=== PATIENT | male | born 1960 | race American Indian/Alaskan Native ===

== ENCOUNTER 2017-01-11 14:11 | Emergency (ER) | payer MEDICAID ==
[2017-01-11] MEDS ORDERED: HYDROmorphone 1 MG/ML Syringe IM ONE (14:50)
--- NOTE | 2017-01-11 14:55 | EDM.PDOC ---
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 he is set up for fusion of C1-C2 usually uses OxyContin to control his pain he states over the last 3 weeks his pain has gotten more severe over the last 24 hours pain is so significant that he has difficulty turning his neck denies any numbness tingling in his fingertips no difficulty with ambulation he is also use muscle relaxants which usually do provide some relief - Related Data Allergies/ADRs: Allergies Allergy/AdvReac Type Severity Reaction Status Date / Time No Known Allergies Allergy Verified 09/04/16 13:54 Home Meds: Home Meds Aspirin [Ecotrin] 81 mg PO DAILY 08/21/16 [History] Cyclobenzaprine [Flexeril] 20 mg PO BEDTIME 08/21/16 [History] Magnesium 200 mg PO DAILY 08/21/16 [History] Multivitamin [Multivitamins] 1 tab PO DAILY 08/21/16 [History] oxyCODONE ER [OxyCONTIN] 10 mg PO BEDTIME 08/21/16 [History] Gabapentin [Neurontin] 1 tab PO TID 01/11/17 [History] Past Medical History Musculoskeletal History: Reports: Neck pain, chronic - Past Surgical History Musculoskeletal Surgical History: Reports: Shoulder surgery Social & Family History - Tobacco Use Smoking Status *Q: Current Every Day Smoker Years of Tobacco use: 40 Packs/Tins Daily: 1 ED ROS GENERAL - Review of Systems Review Of Systems: See Below Constitutional: Reports: no symptoms Respiratory: Reports: No Symptoms Cardiovascular: Reports: No symptoms GI/Abdominal: Reports: No symptoms Musculoskeletal: Reports: neck pain ED EXAM, UPPER BACK/NECK PAIN - Physical Exam Exam: See Below Exam Limited By: No limitations General Appearance: alert, WD/WN, mild distress Eye Exam: bilateral eye: normal inspection Head Exam: atraumatic, normocephalic Neck Exam: normal alignment, normal inspection, limited range of motion, muscle spasm, paraspinous muscle tender, stiff neck, tenderness, tender lateral. No: spinous processes tender, tender midline Course - Vital Signs Last Recorded V/S: Last Vital Signs Temp 97.1 F 01/11/17 16:38 Pulse 78 01/11/17 16:38 Resp 16 01/11/17 16:38 BP 129/87 01/11/17 16:38 Pulse Ox 97 01/11/17 16:38 - Orders/Labs/Meds Meds: Medications Discontinued Medications Generic Name Dose Route Start Last Admin Trade Name Darren PRN Reason Stop Dose Admin Baclofen 10 mg 01/11/17 16:21 01/11/17 16:49 Lioresal PO 01/11/17 16:22 10 mg ONETIME ONE Administration Hydromorphone HCl 1 mg 01/11/17 14:50 01/11/17 15:09 Dilaudid IM 01/11/17 14:51 1 mg ONETIME ONE Administration Lorazepam 1 mg 01/11/17 15:34 01/11/17 15:51 Ativan IM 01/11/17 15:35 1 mg ONETIME ONE Administration Departure - Departure Time of Disposition: 17:04 Disposition: Home, Self-Care 01 Condition: good Clinical Impression: Neck pain Forms: ED Department Discharge Additional Instructions: Use Ativan as needed to help control muscle spasms, keep your followup appointment at the [facility] on Friday - Assessment/Plan Plan: Assessment Acuity = acute on chronic Site and laterality = neck pain Etiology = probably secondary to muscle spasm Manifestations = none Location of injury = home Plan He had minimal improvement from the Dilaudid provided, was given 1 mg Ativan IM as well as 10 mg of baclofen which did provide some relief to him plan is to discharge home with Ativan he has an appointment at the [facility] for his neck pain on Friday total #10 1 mg tablets, Patient was in agreement with the plan all questions were answered, they were instructed to return to the emergency department or call for worsening symptoms. This note was dictated using [employer] voice recognition software please call with any questions.
[2017-01-11] MEDS ORDERED: LORazepam 2 MG/ML MDV IM ONE (15:34)
[2017-01-11] MEDS ORDERED: Baclofen 10 MG Tab PO ONE (16:21)
[2017-01-11 16:38] VITALS: BP 129/87
== END 2017-01-11 17:15 | disposition home or self-care (01) ==
LOC: JP.ED 14:11
DX: M54.2 Cervicalgia (principal); F17.210 Nicotine dependence, cigarettes, uncomplicated; Z98.890 Other specified postprocedural states; Z79.82 Long term (current) use of aspirin; Z79.899 Other long term (current) drug therapy
CPT/HCPCS: 96372; 99283; A9270; J1170; J2060

== ENCOUNTER 2018-05-31 11:02 | Inpatient (IN) | payer MEDICAID ==
[2018-05-31] MEDS ORDERED: Ketorolac 60 MG/2 ML SDV IM ONE (11:33)
--- NOTE | 2018-05-31 11:36 | EDM.PDOC ---
ED HPI GENERAL MEDICAL PROBLEM - General Chief Complaint: Upper Extremity Injury/Pain Stated Complaint: POSSIBLE BROKEN RIBS Time Seen by Provider: 05/31/18 11:31 Source of Information: Reports: Patient, Family (son) History Limitations: Reports: No Limitations - History of Present Illness INITIAL COMMENTS - FREE TEXT/NARRATIVE: Pt was playing in the yard with his grandkids about 10:45 this morning when he tripped over a electrical cord and fell onto his left side. Now with mid thoracic lateral rib pain. Ice is applied. Rates pain a 10. Pt moaning with position changes. Denies shortness of breath. 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: Cold Therapy Left Chest Pain Score (Numeric/FACES): 10 - Related Data Allergies Allergy/AdvReac Type Severity Reaction Status Date / Time No Known Allergies Allergy Verified 05/31/18 11:19 Home Meds: Home Meds Aspirin [Ecotrin] 81 mg PO DAILY 08/21/16 [History] Magnesium 200 mg PO DAILY 08/21/16 [History] Past Medical History Musculoskeletal History: Reports: Neck Pain, Chronic - Past Surgical History Musculoskeletal Surgical History: Reports: Shoulder Surgery, Other (See Below) Other Musculoskeletal Surgeries/Procedures:: C2 clean out Social & Family History - Tobacco Use Smoking Status *Q: Current Every Day Smoker Years of Tobacco use: 35 Packs/Tins Daily: 1 Used Tobacco, but Quit: No Second Hand Smoke Exposure: Yes - Caffeine Use Caffeine Use: Reports: Coffee - Recreational Drug Use Recreational Drug Use: No Review of Systems - Review of Systems Review Of Systems: See Below Constitutional: Reports: No Symptoms Ears: Reports: No Symptoms Nose: Reports: No Symptoms Mouth/Throat: Reports: No Symptoms Respiratory: Reports: No Symptoms Cardiovascular: Reports: No Symptoms Musculoskeletal: Reports: Other (left lateral rib pain) Skin: Reports: Other (small abrasion to left ring finger) Neurological: Reports: No Symptoms Psychiatric: Reports: Anxiety (moaning with pain) ED EXAM, GENERAL - Physical Exam Exam: See Below Exam Limited By: No Limitations General Appearance: Alert, WD/WN, Moderate Distress Ears: Normal External Exam, Normal Canal, Hearing Grossly Normal, Normal TMs Nose: Normal Inspection, Normal Mucosa, No Blood Throat/Mouth: Normal Inspection, Normal Lips, Normal Teeth, Normal Gums, Normal Oropharynx, Normal Voice, No Airway Compromise Head: Atraumatic, Normocephalic Neck: Normal Inspection, Supple, Non-Tender, Full Range of Motion Respiratory/Chest: No Respiratory Distress, Lungs Clear, Normal Breath Sounds, No Accessory Muscle Use, Chest Non-Tender Cardiovascular: Normal Peripheral Pulses Back Exam: Normal Inspection, Full Range of Motion, Other (tender over the left lateral thoracic region. No bruising or abrasion noted.) Course - Vital Signs Last Recorded V/S: Last Vital Signs Temp 96.2 F 05/31/18 12:41 Pulse 88 05/31/18 12:41 Resp 16 05/31/18 12:41 BP 122/77 05/31/18 12:41 Pulse Ox 95 05/31/18 12:41 - Orders/Labs/Meds Orders: Active Orders 24 hr Category Date Time Status Chest 1V Frontal [CR] Stat Exams 05/31/18 13:49 Taken Chest wo Cont [CT] Stat Exams 05/31/18 12:12 Taken Ribs 2V w Chest Lt [CR] Stat Exams 05/31/18 11:32 Taken Lidocaine 1% w/EPINEPHrine [Xylocaine 1% with Med 05/31/18 13:15 Active EPINEPHrine 1:100,000] 5 ml INFILT STAT Sodium Chloride 0.9% [Saline Flush] Med 05/31/18 12:22 Active 10 ml FLUSH ASDIRECTED PRN Saline Lock Insert [OM.PC] Routine Oth 05/31/18 12:22 Ordered Medication Orders Lidocaine/Epinephrine (Xylocaine 1% With Epinephrine 1:100,000) 5 ml INFILT STAT NORMA Last Admin: 05/31/18 13:59 Dose: 5 ml Sodium Chloride (Saline Flush) 10 ml FLUSH ASDIRECTED PRN PRN Reason: Keep Vein Open Last Admin: 05/31/18 13:27 Dose: 10 ml Admin: 05/31/18 12:32 Dose: 10 ml Labs: Laboratory Tests 05/31/18 05/31/18 05/31/18 Range/Units 12:34 12:34 12:34 WBC 13.0 H (4.5-11.0) K/uL RBC 5.29 (4.30-5.90) M/uL Hgb 16.4 H (12.0-15.0) g/dL Hct 48.6 (40.0-54.0) % MCV 92 (80-98) fL MCH 31 (27-31) pg MCHC 34 (32-36) % Plt Count 244 (150-400) K/uL Neut % (Auto) 77 H (36-66) % Lymph % (Auto) 15 L (24-44) % Crockett % (Auto) 6 (2-6) % Eos % (Auto) 2 (2-4) % Baso % (Auto) 1 (0-1) % PT 11.4 (9.5-12.0) sec INR 1.04 (0.80-1.20) Sodium 138 L (140-148) mmol/L Potassium 4.5 (3.6-5.2) mmol/L Chloride 103 (100-108) mmol/L Carbon Dioxide 25 (21-32) mmol/L Anion Gap 14.5 H (5.0-14.0) mmol/L BUN 10 (7-18) mg/dL Creatinine 0.7 L (0.8-1.3) mg/dL Est Cr Clr Drug Dosing 117.83 mL/min Estimated GFR (MDRD) > 60 (>60) Glucose 118 H (74-106) mg/dL Calcium 9.4 (8.5-10.1) mg/dL Meds: Medications Generic Name Dose Route Start Last Admin Trade Name Freq PRN Reason Stop Dose Admin Lidocaine/Epinephrine 5 ml 05/31/18 13:15 05/31/18 13:59 Xylocaine 1% With Epinephrine 1:100,000 INFILT 5 ml STAT NORMA Administration Sodium Chloride 10 ml 05/31/18 12:22 05/31/18 13:27 Saline Flush FLUSH 10 ml ASDIRECTED PRN Administration Keep Vein Open Discontinued Medications Generic Name Dose Route Start Last Admin Trade Name Freq PRN Reason Stop Dose Admin Hydromorphone HCl 1 mg 05/31/18 12:22 05/31/18 12:30 Dilaudid IVPUSH 05/31/18 12:23 1 mg ONETIME ONE Administration Hydromorphone HCl 1 mg 05/31/18 12:53 05/31/18 13:21 Dilaudid IVPUSH 09/02/18 12:54 1 mg ONETIME ONE Administration Ketorolac Tromethamine 60 mg 05/31/18 11:33 05/31/18 11:44 Toradol IM 05/31/18 11:34 60 mg ONETIME ONE Administration Midazolam HCl 5 mg 05/31/18 13:03 05/31/18 13:32 Versed 1 Mg/Ml IVPUSH 05/31/18 13:04 5 mg ONETIME ONE Administration Departure - Departure Time of Disposition: 14:13 Disposition: Admitted As Inpatient 67 Condition: Fair Clinical Impression: Pneumothorax, left Ribs, multiple fractures Qualifiers: Encounter type: initial encounter Fracture type: closed Laterality: left Qualified Code(s): S22.42XA - Multiple fractures of ribs, left side, initial encounter for closed fracture - Discharge Information *PRESCRIPTION DRUG MONITORING PROGRAM REVIEWED*: Yes *COPY OF PRESCRIPTION DRUG MONITORING REPORT IN PATIENT MIKE: Not Applicable Instructions: Chest Tube Insertion, Adult Referrals: PCP,None [Primary Care Provider] - Forms: ED Department Discharge Additional Instructions: Ketorolac IM given prior to xray. Xrays show multiple left rib fractures and left pneumothorax. Chest CT without contrast shows left tension pneumothorax. Labs stable. Saline lock initiated. Pain meds administered. Dr Benson, general surgery contacted. Chest tube recommended and pt to be admitted for chest tube cares and pain management. Pt and family voice understanding of plan. Chest tube placed to left chest per Dr Benson in ER. See Nurses Notes for details. Pt tolerated well. - Problem List & Annotations (1) Ribs, multiple fractures SNOMED Code(s): 8468206 Code(s): S22.49XA - MULTIPLE FRACTURES OF RIBS, UNSP SIDE, INIT FOR CLOS FX Status: Acute Priority: Medium Current Visit: Yes Qualifiers: Encounter type: initial encounter Fracture type: closed Laterality: left Qualified Code(s): S22.42XA - Multiple fractures of ribs, left side, initial encounter for closed fracture (2) Pneumothorax, left SNOMED Code(s): 580694593 Code(s): J93.9 - PNEUMOTHORAX, UNSPECIFIED Status: Acute Priority: High Current Visit: Yes - My Orders Last 24 Hours: My Active Orders 05/31/18 11:32 Ribs 2V w Chest Lt [CR] Stat 05/31/18 12:12 Chest wo Cont [CT] Stat 05/31/18 12:22 Sodium Chloride 0.9% [Saline Flush] 10 ml FLUSH ASDIRECTED PRN Saline Lock Insert [OM.PC] Routine 05/31/18 13:15 Lidocaine 1% w/EPINEPHrine [Xylocaine 1% with EPINEPHrine 1:100,000] 5 ml INFILT STAT 05/31/18 13:49 Chest 1V Frontal [CR] Stat - Assessment/Plan Last 24 Hours: My Active Orders 05/31/18 11:32 Ribs 2V w Chest Lt [CR] Stat 05/31/18 12:12 Chest wo Cont [CT] Stat 05/31/18 12:22 Sodium Chloride 0.9% [Saline Flush] 10 ml FLUSH ASDIRECTED PRN Saline Lock Insert [OM.PC] Routine 05/31/18 13:15 Lidocaine 1% w/EPINEPHrine [Xylocaine 1% with EPINEPHrine 1:100,000] 5 ml INFILT STAT 05/31/18 13:49 Chest 1V Frontal [CR] Stat
[2018-05-31] MEDS ORDERED: HYDROmorphone 1 MG/ML Syringe IVPUSH ONE ×2 (12:22→12:53)
[2018-05-31] MEDS: Sodium Chloride 0.9% 10 ML Syringe FLUSH PRN ×2 (12:32→13:27)
[2018-05-31] MEDS ORDERED: Midazolam 1 MG/ML 5 ML SDV IVPUSH ONE (13:03)
[2018-05-31] MEDS ORDERED: Lidocaine 1% with EPINEPHrine 1:100,000 50 ML MDV INFILT SCH (13:15)
[2018-05-31] MEDS ORDERED: Naloxone 0.4 MG/ML SDV IV PRN (14:45)
[2018-05-31] MEDS ORDERED: HYDROmorphone/Normal Saline 15 MG/30 ML PCA IV PRN (14:45)
[2018-05-31] MEDS: Dextrose 5%-Lactated Ringers 1,000 ML IV SCH (15:13)
[2018-05-31] MEDS: Ibuprofen 600 MG Tab PO SCH ×2 (16:25→22:41)
[2018-05-31] MEDS: Pantoprazole 40 MG Tab.CR PO SCH (16:25)
[2018-05-31] MEDS: Nicotine 21 MG/24 Hr Patch TRDERM SCH (20:00)
[2018-05-31] MEDS ORDERED: Ondansetron 4 MG Tab.DIS PO PRN (23:22)
[2018-06-01] MEDS ORDERED: diphenhydrAMINE 50 MG/ML SDV IVPUSH PRN (04:20)
[2018-06-01] MEDS: Ibuprofen 600 MG Tab PO SCH ×4 (05:02→21:52)
[2018-06-01] MEDS: Pantoprazole 40 MG Tab.CR PO SCH (07:38)
[2018-06-01] MEDS: Nicotine 21 MG/24 Hr Patch TRDERM SCH (08:10)
[2018-06-01] MEDS: Aspirin 81 MG Tab.EC PO SCH (08:12)
[2018-06-01] MEDS: Magnesium Oxide 400 MG Tab PO SCH (10:09)
[2018-06-01] MEDS: Docusate Sodium 100 MG Cap PO SCH ×2 (10:09→21:52)
[2018-06-01] MEDS: Dextrose 5%-Lactated Ringers 1,000 ML IV SCH (11:34)
--- NOTE | 2018-06-01 13:37 | PN ---
DATE OF SERVICE: 06/01/2018 The patient has continued to have pain related to the rib fracture. Chest tube is knot tightly and no air leaks were seen. There does not appear to be any pneumothorax on today's chest x-ray and we would leave the chest tube in for today. We will clamp the tube for 2 hours before the chest x-ray tomorrow morning and if the lung stays up, we will likely remove the chest tube and will have him quickly discharged home at that time. Otherwise, I will add some Colace to the regimen given the narcotics he is receiving. Parmjit Benson MD /[id number]
[2018-06-01] MEDS ORDERED: Acetaminophen/oxyCODONE 325-5 MG Tab PO PRN ×2 (14:11→14:32)
[2018-06-01] MEDS ORDERED: HYDROmorphone 2 MG Tab PO PRN (17:14)
[2018-06-01] MEDS: Acetaminophen 500 MG Tab PO PRN ×2 (17:38→23:40)
[2018-06-01] MEDS: HYDROmorphone 2 MG Tab PO PRN ×2 (17:40→21:52)
[2018-06-01] MEDS ORDERED: Dextrose 5%-Lactated Ringers 1,000 ML IV SCH (23:45)
[2018-06-01] MEDS ORDERED: HYDROmorphone/Normal Saline 15 MG/30 ML PCA IV SCH (23:45)
[2018-06-01] MEDS ORDERED: Sodium Chloride 0.9% 10 ML Syringe FLUSH PRN (23:55)
[2018-06-02] MEDS ORDERED: hydrOXYzine HCl 100 MG/2 ML SDV IM PRN (00:15)
[2018-06-02] MEDS: Ibuprofen 600 MG Tab PO SCH ×2 (05:39→10:02)
[2018-06-02] MEDS: Pantoprazole 40 MG Tab.CR PO SCH (07:41)
[2018-06-02] MEDS: HYDROmorphone 2 MG Tab PO PRN ×2 (08:13→12:24)
[2018-06-02] MEDS: Nicotine 21 MG/24 Hr Patch TRDERM SCH (08:44)
[2018-06-02] MEDS: Magnesium Oxide 400 MG Tab PO SCH (08:44)
[2018-06-02] MEDS: Docusate Sodium 100 MG Cap PO SCH (08:44)
[2018-06-02] MEDS: Aspirin 81 MG Tab.EC PO SCH (08:44)
--- NOTE | 2018-06-02 09:57 | CR ---
Ribs 2V w Chest Lt CLINICAL HISTORY: Left rib pain, fall FINDINGS: There is a moderate-sized left pneumothorax. There is no shift of the mediastinum. There ar e nondisplaced fractures of the left sixth and seventh ribs IMPRESSION: Nondisplaced fractures of the left sixth and seventh ribs Moderate left pneumothorax without mediastinal shift
--- NOTE | 2018-06-02 10:08 | CR ---
CHEST: Supine CLINICAL HISTORY:Chest tube placement COMPARISON:Prior rib study FINDINGS: There is some residual perihilar density in the left lung. The previously seen pneumothora x is significantly diminished. There is some patchy perihilar atelectasis There is a tube seen in the lateral left chest 2. This appears to be just deep to the the ribs. IMPRESSION: Limited study A tube is been placed in the left hemithorax Pneumothorax is essentially resolved Residual patchy atelectasis on the left
[2018-06-02] MEDS ORDERED: diphenhydrAMINE 25 MG Cap PO PRN (10:33)
--- NOTE | 2018-06-02 10:53 | CR ---
CHEST: Portable CLINICAL HISTORY:Left chest tube COMPARISON:05/31/2018 FINDINGS: There is no recurrence of pneumothorax. There is a 2 cm rounded density in the left. Hilar region. This could represent some rounded atelectasis. There is some minimal streaky density in the left lung base likely of similar etiology. There is some minimal left chest subcutaneous emphysema. IMPRESSION: No evidence of pneumothorax Small amount of subcutaneous emphysema 2 cm nodular density in left perihilar region and some patchy density left lung base may represent so me residual atelectasis. Short-term follow-up recommended until clear
--- NOTE | 2018-06-02 11:23 | CR ---
CHEST: Portable CLINICAL HISTORY:Chest tube COMPARISON:Earlier studies FINDINGS: There is no recurrent pneumothorax identified. There are persistent nodular densities in t he left perihilar region and left lower lobe. There is some subcutaneous emphysema. There is a tube s een in the left lateral chest soft tissues.. IMPRESSION: No recurrence of pneumothorax Persistent left perihilar and left lower lobe densities. The short-term follow-up recommended until c lear. The tubing seen in the left lateral chest soft tissues appears to be outside the hemithorax
--- NOTE | 2018-06-02 11:26 | CR ---
CHEST: Portable CLINICAL HISTORY:Post chest tube removal COMPARISON:Earlier same day FINDINGS: Left chest tube is been removed. There is no evidence of recurrent pneumothorax. Left uppe r lobe density has essentially resolved. There is some residual retrocardiac density. IMPRESSION: Chest tube is been removed No pneumothorax Persistent airspace disease in the left lower lung field
[2018-06-02] MEDS: Acetaminophen 500 MG Tab PO PRN (12:24)
[2018-06-02 12:58] VITALS: BP 137/67
--- NOTE | 2018-06-03 12:18 | DISCH ---
FINAL DIAGNOSIS: Left fifth rib fracture associated with pneumothorax. SECONDARY DIAGNOSES: 1. History of cervical disk disease. 2. History of shoulder surgery. OPERATIVE PROCEDURE: This was done on 05/31/2018, left tube thoracostomy. HOSPITAL COURSE: This is a 57-year-old, who was playing in the yard with his grandchildren, who fell on his left side. He developed severe pain there and came in with some degree of shortness of breath. He was noted to have a large left pneumothorax. No significant blood was present in the pleural space. He had single right anterior fifth rib fracture. A tube thoracostomy was placed in the anterior site on the left side, and he was noted to have no air leak after the initial chest tube placement. The chest tube was removed today, i.e., on postop day #2, and his lung has stayed up nicely, and he will be discharged home later today. He will follow up with Dr. Benson in [facility] on 06/04/2018 at 2:30 p.m. with PA and lateral chest x-ray. He is instructed to leave the chest tube site dressing on until that time. DISCHARGE MEDICATIONS: His prescriptions will include Tylenol 1 gram p.o. q.i.d. p.r.n.; ibuprofen 600 mg q.i.d. x5 days and then p.r.n.; Dilaudid 4 to 6 mg p.o. q.4 hours p.r.n. pain, #40; and Flexeril 10 mg p.o. q.6 hours p.r.n. muscle spasms. He will be instructed to continue his home medications, which were aspirin 81 mg a day and magnesium 200 mg a day. He is instructed that should he develop shortness breath or increasing pain, he should present to the emergency room at that time.
== END 2018-06-02 13:30 | disposition home or self-care (01) | DRG 135 ==
LOC: JP.ED 11:02 → JP.MS 14:22
PROVIDERS: ADMIT Surgery; ATTEND Surgery
PROC: 0W9B30Z Drainage of Left Pleural Cavity with Drainage Device, Percutaneous Approach (ICD-10-PCS; principal; 2018-05-31)
DX: S27.0XXA Traumatic pneumothorax, initial encounter (principal); S22.32XA Fracture of one rib, left side, initial encounter for closed fracture; W18.09XA Striking against other object with subsequent fall, initial encounter; Y92.007 Garden or yard of unspecified non-institutional (private) residence as the place of occurrence of the external cause; F17.210 Nicotine dependence, cigarettes, uncomplicated; M54.2 Cervicalgia; G89.29 Other chronic pain; Z79.82 Long term (current) use of aspirin
CPT/HCPCS: 36415; 71045; 71045-26; 71101-26-LT; 71101-LT; 71250; 80048; 85025; 85610; 94762; 96372; 96374; 96375; 96376; 99285-25; A9270-GY; J1170; J1200; J1885; J2250; J3410; J7042; J7050

== ENCOUNTER 2019-08-26 00:24 | Emergency (ER) | payer MEDICAID ==
[2019-08-26 00:46] VITALS: BP 135/66; PULSE 75
--- NOTE | 2019-08-26 00:50 | EDM.PDOC ---
ED HPI GENERAL MEDICAL PROBLEM - General Chief Complaint: Lower Extremity Injury/Pain Stated Complaint: RIGHT CALF PAIN Time Seen by Provider: 08/26/19 00:45 Source of Information: Reports: Patient, RN Notes Reviewed History Limitations: Reports: No Limitations - History of Present Illness INITIAL COMMENTS - FREE TEXT/NARRATIVE: 58-year-old gentleman presents emergency department today complaint of right knee pain, he states pain is started today he is been taking 800 mg of ibuprofen without much relief he did do some work on his knees earlier today however denies any trauma. He is concerned about a blood clot Right Leg Pain Score (Numeric/FACES): 9 - Related Data Allergies Allergy/AdvReac Type Severity Reaction Status Date / Time No Known Allergies Allergy Verified 05/31/18 11:19 Home Meds: Home Meds NK [No Known Home Meds] 08/26/19 [History] Past Medical History Musculoskeletal History: Reports: Neck Pain, Chronic - Past Surgical History Musculoskeletal Surgical History: Reports: Shoulder Surgery, Other (See Below) Other Musculoskeletal Surgeries/Procedures:: C2 clean out Social & Family History - Family History Family Medical History: Noncontributory - Caffeine Use Caffeine Use: Reports: Coffee Review of Systems - Review of Systems Review Of Systems: See Below Constitutional: Reports: No Symptoms Musculoskeletal: Reports: Joint Pain (Knee pain) Skin: Reports: No Symptoms ED EXAM, GENERAL - Physical Exam Exam: See Below Free Text/Narrative:: Examination the right knee I do not appreciate any erythema there is no edema noted he is tender along the joint line of the lateral aspect full range of motion pedal pulses +2 there is no tenderness to the calf Exam Limited By: No Limitations General Appearance: Alert, WD/WN, No Apparent Distress Course - Vital Signs Last Recorded V/S: Last Vital Signs Temp 96.9 F 08/26/19 00:44 Pulse 75 08/26/19 00:44 Resp 14 08/26/19 00:44 BP 135/66 08/26/19 00:44 Pulse Ox 96 08/26/19 00:44 - Orders/Labs/Meds Labs: Laboratory Tests 08/26/19 Range/Units 00:55 D-Dimer, Quantitative < 100 (0.0-400.0) ng/mL Departure - Departure Time of Disposition: 01:22 Disposition: Home, Self-Care 01 Condition: Fair Clinical Impression: Right knee pain Qualifiers: Chronicity: acute Qualified Code(s): M25.561 - Pain in right knee - Discharge Information Instructions: Knee Pain, Adult Referrals: PCP,None [Primary Care Provider] - Forms: ED Department Discharge Additional Instructions: Continue to use ibuprofen for baseline pain control, use the hydrocodone for breakthrough pain, please followup with your primary care provider in 2-3 days if not better, please call return to the emergency department with worsening of symptoms. - Assessment/Plan Plan: Assessment Acuity = acute Site and laterality = right knee pain Etiology = probably secondary to overuse injury Manifestations = none Location of injury = Home Lab values = d-dimer is negative Plan Continue use ibuprofen for baseline pain control use hydrocodone for breakthrough pain, prescription written for hydrocodone 5/325 1 tab p.o. 3 times daily as needed total #4 follow-up primary care 2 to 3 days if no improvement This note was dictated using [employer] voice recognition software please call with any questions on syntax or grammar.
== END 2019-08-26 01:30 | disposition home or self-care (01) ==
LOC: JP.ED 00:24
DX: M25.561 Pain in right knee (principal)
CPT/HCPCS: 36415; 85379; 99283

== ENCOUNTER 2019-11-24 19:19 | Emergency (ER) | payer MEDICAID ==
[2019-11-24 19:30] VITALS: BP 141/98; PULSE 96
--- NOTE | 2019-11-24 19:55 | EDM.PDOC ---
ED HPI GENERAL MEDICAL PROBLEM - General Chief Complaint: Skin Complaint Stated Complaint: BOIL Time Seen by Provider: 11/24/19 19:35 Source of Information: Reports: Patient, Old Records, RN History Limitations: Reports: No Limitations - History of Present Illness INITIAL COMMENTS - FREE TEXT/NARRATIVE: 59 yo NA male here with an abscess in his upper gluteal area. This is getting gradually more painful. He had something like this in the past that Dr. Benson drained for him. He has not been to the clinic yet for this. No fever. 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 (see below) (topical salve) Right Buttock Pain Score (Numeric/FACES): 4 - Related Data Allergies Allergy/AdvReac Type Severity Reaction Status Date / Time No Known Allergies Allergy Verified 11/24/19 19:30 Home Meds: Home Meds NK [No Known Home Meds] 08/26/19 [History] Past Medical History HEENT History: Reports: Hard of Hearing Genitourinary History: Reports: Other (See Below) Other Genitourinary History: "rupturedright kidney in 2014" Musculoskeletal History: Reports: Fracture, Neck Pain, Chronic Other Musculoskeletal History: fx vertebrae and ribs - Infectious Disease History Infectious Disease History: Reports: Chicken Pox - Past Surgical History Neurological Surgical History: Reports: C-Spine Musculoskeletal Surgical History: Reports: Shoulder Surgery, Other (See Below) Other Musculoskeletal Surgeries/Procedures:: C2 clean out Social & Family History - Family History Family Medical History: Noncontributory - Tobacco Use Smoking Status *Q: Current Every Day Smoker Years of Tobacco use: 35 Packs/Tins Daily: 1 - Caffeine Use Caffeine Use: Reports: Coffee Caffeine Use Comment: daily coffee use - Recreational Drug Use Recreational Drug Use: No ED ROS GENERAL - Review of Systems Review Of Systems: Comprehensive ROS is negative, except as noted in HPI. Constitutional: Reports: No Symptoms Skin: Reports: Erythema, Lumps (upper gluteal cleft). Denies: Pruritis ED EXAM, SKIN/RASH Exam: See Below Exam Limited By: No Limitations General Appearance: Alert, WD/WN, No Apparent Distress Back Exam: No: CVA Tenderness (R), CVA Tenderness (L) Neurological: Alert, Oriented, CN II-XII Intact, Normal Cognition, No Motor/ Sensory Deficits Psychiatric: Normal Affect, Normal Mood Skin: Warm, Dry, Intact, No Rash, Erythema, Increased Warmth, Other ( nonfluctuant abscess upper gluteal cleft. ). No: Wound/Incision Location, Skin: Other (Upper gluteal cleft) Characteristics: Erythematous, Other (abscess) Associated features: Tenderness, Induration. No: Lymphangitis Course - Vital Signs Last Recorded V/S: Last Vital Signs Temp 36.4 C 11/24/19 19:32 Pulse 96 11/24/19 19:32 Resp 16 11/24/19 19:32 BP 141/98 H 11/24/19 19:32 Pulse Ox 97 11/24/19 19:32 Departure - Departure Time of Disposition: 20:00 Disposition: Home, Self-Care 01 Condition: Fair Clinical Impression: Abscess - Discharge Information *PRESCRIPTION DRUG MONITORING PROGRAM REVIEWED*: No *COPY OF PRESCRIPTION DRUG MONITORING REPORT IN PATIENT MIKE: No Instructions: Skin Abscess Referrals: PCP,None [Primary Care Provider] - Additional Instructions: Warm, moist compresses or sitz baths several times daily. Use ibuprofen 400-600 mg every 6 hrs as needed for pain relief. Add [place] OR acetaminophen for added relief. Take cephalexin every 6 hrs. Recheck tomorrow afternoon in the clinic to see if ready for incision and drainage. Sepsis Event Note - Evaluation Sepsis Screening Result: No Definite Risk - Focused Exam Vital Signs: Vital Signs Temp Pulse Resp BP Pulse Ox 11/24/19 19:32 36.4 C 96 16 141/98 H 97 11/24/19 19:28 36.4 C 96 16 141/98 H 97 Date Exam was Performed: 11/24/19 Time Exam was Performed: 19:49
== END 2019-11-24 20:05 | disposition home or self-care (01) ==
LOC: JP.ED 19:19
DX: L02.31 Cutaneous abscess of buttock (principal); F17.210 Nicotine dependence, cigarettes, uncomplicated
CPT/HCPCS: 99282